=== PATIENT | female | born 1975 | race Caucasian/White ===

== ENCOUNTER 2020-11-07 12:16 | Emergency (ER) | payer MEDICAID, OTHER ==
[~2020-11-07] VITALS: Ht 170.2 cm; Wt 97.3 kg
[2020-11-07] MEDS ORDERED: PENI500T2 PO (12:51)
== END 2020-11-07 13:30 | disposition home or self-care (01) ==
LOC: ER 12:17
DX: J02.9 Acute pharyngitis, unspecified (principal); R50.9 Fever, unspecified; Z98.890 Other specified postprocedural states; Z79.2 Long term (current) use of antibiotics
CPT/HCPCS: 87880; 99283